=== PATIENT | female | born 1980 | race Two or more races ===

== ENCOUNTER 2022-04-01 20:25 | Emergency (ER) | payer OTHER ==
[~2022-04-01] VITALS: Ht 160 cm; Wt 85.0 kg
[2022-04-01 22:48] VITALS: BP 133/85
[2022-04-01] MEDS ORDERED: IBUP800T27 PO (23:10)
[2022-04-01] MEDS ORDERED: KETOROLAC TROMETH 60MG/2ML VIAL IM ONE (23:15)
== END 2022-04-01 23:33 | disposition home or self-care (01) ==
LOC: ER 20:25
DX: S39.012A Strain of muscle, fascia and tendon of lower back, initial encounter (principal); J45.909 Unspecified asthma, uncomplicated; F12.10 Cannabis abuse, uncomplicated; Z90.49 Acquired absence of other specified parts of digestive tract; V49.9XXA Car occupant (driver) (passenger) injured in unspecified traffic accident, initial encounter; Y93.89 Activity, other specified; Y92.89 Other specified places as the place of occurrence of the external cause; Y99.8 Other external cause status
CPT/HCPCS: 72100; 96372; 99283; J1885